=== PATIENT | male | born 1980 | race Two or more races ===

== ENCOUNTER → 2017-08-23 | Emergency (ER) | payer OTHER ==
[~2017-08-23] VITALS: Ht 175.3 cm; Wt 99.8 kg
[~2017-08-23] MED LIST: LISINOPRIL10 MG; SIMVASTATIN5 MG; SYNTHROID75 MCG
== END | disposition home or self-care (01) ==
LOC: ER 15:33 → CPU-OBS 15:57
DX: R42 Dizziness and giddiness (principal); K29.70 Gastritis, unspecified, without bleeding; R53.1 Weakness; I10 Essential (primary) hypertension
CPT/HCPCS: G0378; G0379; 93005; 76700

== ENCOUNTER 2020-02-28 11:12 | Emergency (ER) | payer OTHER ==
[~2020-02-28] VITALS: Ht 175.3 cm; Wt 104.3 kg
[2020-02-28] MEDS ORDERED: ADALAT CC60 MG PO (11:18)
[2020-02-28] MEDS ORDERED: HYDRODIURIL12.5 MG PO (11:19)
== END 2020-02-28 14:44 | disposition home or self-care (01) ==
LOC: ER 11:12
DX: I16.0 Hypertensive urgency (principal); I10 Essential (primary) hypertension; Z03.818 Encounter for observation for suspected exposure to other biological agents ruled out

== ENCOUNTER 2020-07-05 12:07 | Emergency (ER) | payer OTHER ==
[~2020-07-05] VITALS: Ht 175.3 cm; Wt 108.9 kg
[~2020-07-05 12:07] MED LIST changes: +ADALAT CC60 MG PO; +HYDRODIURIL12.5 MG PO
[2020-07-05] MEDS ORDERED: IRBESARTAN-HCT1 EAC1 (12:30)
[2020-07-05] MEDS ORDERED: NIFEDIPINE ER90 M1 (12:30)
== END 2020-07-05 16:58 | disposition home or self-care (01) ==
LOC: ER 12:07
DX: S81.021A Laceration with foreign body, right knee, initial encounter (principal); W45.8XXA Other foreign body or object entering through skin, initial encounter; Y93.89 Activity, other specified; Y92.098 Other place in other non-institutional residence as the place of occurrence of the external cause; Y99.8 Other external cause status

== ENCOUNTER 2021-09-29 07:17 | Outpatient (CLI) | payer OTHER ==
[~2021-09-29 07:17] MED LIST changes: +IRBESARTAN-HCT1 EAC1; +NIFEDIPINE ER90 M1; +SALINE NASAL SP88 ML
== END 2021-09-29 07:27 | disposition home or self-care (01) ==
LOC: RAD 07:17
DX: I11.9 Hypertensive heart disease without heart failure (principal)